=== PATIENT | male | born 1980 | race Caucasian/White ===

== ENCOUNTER 2018-01-24 21:42 | Emergency (ER) | payer OTHER ==
[~2018-01-24] VITALS: Ht 182.9 cm; Wt 84.0 kg
[2018-01-24 21:49] VITALS: Ht 182.9 cm; Wt 84.0 kg
[2018-01-24] MEDS ORDERED: SODIUM CHLORIDE 0.9% 1000ML 1,000 ML IV STA (22:08)
[2018-01-24] MEDS ORDERED: ONDANSETRON INJ 2 MG/ML 2 ML VIAL IV STA ×2 (22:08→23:27)
[2018-01-24] MEDS ORDERED: WLLSR150 PO (22:31)
[2018-01-24 22:41] LABS: BASO % 0.1 %; BASO ABS # 0.02 K/uL (0-0.2); HEMATOCRIT 44.2 % (42-52); IG# 0.06 K/uL (0.00-0.02); LYMPH % 14.3 %; LYMPH ABS # 2.06 K/uL (1.2-3.4); MEAN CELL VOLUME 88.9 fL (80-100); MEAN CORPUSCULAR HEMOGLOBIN 32.2 pg (25-34); MEAN CORPUSCULAR HGB CONC 36.2 g/dl (32-36); MEAN PLATELET VOLUME 9.7 fL (7.4-10.4); MONO % 7.3 %; MONO ABS # 1.05 K/uL (0.11-0.59); NEUT % 77.9 %; NEUT ABS # 11.26 K/uL (1.4-6.5); PLATELET COUNT 323 K/uL (130-400); RED CELL DISTRIBUTION WIDTH SD 41.9 fL (36.4-46.3); WHITE BLOOD COUNT 14.45 K/uL (4.8-10.8)
[2018-01-24 23:01] LABS: ALBUMIN 4.3 gm/dl (3.4-5.0); CALCIUM 9.2 mg/dl (8.5-10.1); CREATININE 1.21 mg/dl (0.60-1.40); POTASSIUM 3.8 mmol/L (3.5-5.1); TOTAL PROTEIN 8.1 gm/dl (6.4-8.2)
[2018-01-24 23:16] VITALS: TEMP 37
[2018-01-25] MEDS ORDERED: ONDA4TAB10 SL (00:30)
[2018-01-25] MEDS ORDERED: ONDANSETRON HOME PACK 4MG OD TAB PO ONE (00:30)
--- NOTE | 2018-01-25 00:30 | EMERGENCY ROOM VISIT NOTE ---
History First contact with patient: 21:56 Chief Complaint: VOMITING Stated Complaint: VOMITING Nursing Triage Summary: Pt states persistent vomiting since wednesday, states unable to keep foods or fluids down. Pt states abdominal pain mid abdomen, states LBM wednesday night which was normal. Pt denies pain in abdomen on palpation. History of Present Illness The patient is a 37 year old male who presents to the Emergency Room with complaints of vomiting for the past 24 hours. Patient states he has had approximately 10 episodes of vomiting and has been unable to keep anything down. He has some discomfort in his abdomen rated a 3/10, but denies any true pain. He denies any diarrhea or changes in bowel movements. The patient does report that over the past several weeks, he has had approximately one episode of vomiting per week after eating. He does not relate this to any specific foods. He has had no abdominal pain or changes in his bowel movements. He denies any fevers. Patient reports a history of depression but is otherwise healthy. Review of Systems A complete 10 point review of systems was reviewed with the patient with pertinent positives and negatives as per history of present illness. All else were negative. Past Medical/Surgical History Medical Problems: (1) Depression Social History Smoking Status: Never Smoker Alcohol Use: occasionally Drug Use: none Housing Status: lives alone Current/Historical Medications Scheduled Bupropion HCl (Bupropion HCl Sr), 150 MG PO BID Ondasetron Odt (Zofran Odt), 4 MG SL Q6H Physical Exam Vital Signs Date Time Temp Pulse Resp B/P (MAP) Pulse Ox O2 Delivery O2 Flow Rate FiO2 01/25/18 00:38 83 18 140/83 97 Room Air 01/24/18 23:16 37.0 83 16 143/84 98 Room Air 01/24/18 21:49 37.5 93 16 165/93 97 Room Air Physical Exam VITALS: Vitals are noted on the nurse's note and reviewed by myself. Vital signs stable. GENERAL: This is a 37-year-old male, in no acute distress, nondiaphoretic, well- developed well-nourished. SKIN: The skin was without rashes. EARS: External auditory canals clear, tympanic membranes pearly rodas without erythema or effusion bilaterally. EYES: Pupils equal round and reactive to light and accommodation. MOUTH: Mucous membranes moist. Tonsils are not enlarged. Pharynx without erythema or exudate. NECK: Supple without nuchal rigidity. No lymphadenopathy. HEART: Regular rate and rhythm without murmurs gallops or rubs. LUNGS: Clear to auscultation bilaterally without wheezes, rales or rhonchi. ABDOMEN: Positive bowel sounds x 4. Soft, nontender to palpation. NEURO: Patient was alert and oriented to person place and time. Medical Decision & Procedures Laboratory Results 01/24/18 22:24 Red Blood Count 4.97, Mean Corpuscular Volume 88.9, Mean Corpuscular Hemoglobin 32.2, Mean Corpuscular Hemoglobin Concent 36.2, Mean Platelet Volume 9.7, Neutrophils (%) (Auto) 77.9, Lymphocytes (%) (Auto) 14.3, Monocytes (%) (Auto) 7.3, Eosinophils (%) (Auto) 0.0, Basophils (%) (Auto) 0.1, Neutrophils # (Auto) 11.26, Lymphocytes # (Auto) 2.06, Monocytes # (Auto) 1.05, Eosinophils # (Auto) 0.00, Basophils # (Auto) 0.02 01/24/18 22:24 Test 01/24/18 22:24 White Blood Count 14.45 K/uL (4.8-10.8) Red Blood Count 4.97 M/uL (4.7-6.1) Hemoglobin 16.0 g/dL (14.0-18.0) Hematocrit 44.2 % (42-52) Mean Corpuscular Volume 88.9 fL (80-100) Mean Corpuscular Hemoglobin 32.2 pg (25-34) Mean Corpuscular Hemoglobin Concent 36.2 g/dl (32-36) Platelet Count 323 K/uL (130-400) Mean Platelet Volume 9.7 fL (7.4-10.4) Neutrophils (%) (Auto) 77.9 % Lymphocytes (%) (Auto) 14.3 % Monocytes (%) (Auto) 7.3 % Eosinophils (%) (Auto) 0.0 % Basophils (%) (Auto) 0.1 % Neutrophils # (Auto) 11.26 K/uL (1.4-6.5) Lymphocytes # (Auto) 2.06 K/uL (1.2-3.4) Monocytes # (Auto) 1.05 K/uL (0.11-0.59) Eosinophils # (Auto) 0.00 K/uL (0-0.5) Basophils # (Auto) 0.02 K/uL (0-0.2) RDW Standard Deviation 41.9 fL (36.4-46.3) RDW Coefficient of Variation 13.0 % (11.5-14.5) Immature Granulocyte % (Auto) 0.4 % Immature Granulocyte # (Auto) 0.06 K/uL (0.00-0.02) Urine Color YELLOW Urine Appearance CLEAR (CLEAR) Urine pH 5.5 (4.5-7.5) Urine Specific [place] 1.031 (1.000-1.030) Urine Protein NEG (NEG) Urine Glucose (UA) NEG (NEG) Urine Ketones 1+ (NEG) Urine Occult Blood NEG (NEG) Urine Nitrite NEG (NEG) Urine Bilirubin NEG (NEG) Urine Urobilinogen NEG (NEG) Urine Leukocyte Esterase NEG (NEG) Anion Gap 11.0 mmol/L (3-11) Est Creatinine Clear Calc Drug Dose 92.7 ml/min Estimated GFR () 88.7 Estimated GFR (Non- 76.6 BUN/Creatinine Ratio 15.1 (10-20) Calcium Level 9.2 mg/dl (8.5-10.1) Total Bilirubin 1.5 mg/dl (0.2-1) Direct Bilirubin 0.3 mg/dl (0-0.2) Aspartate Amino Transf (AST/SGOT) 18 U/L (15-37) Alanine Aminotransferase (ALT/SGPT) 25 U/L (12-78) Alkaline Phosphatase 70 U/L (45-117) Total Protein 8.1 gm/dl (6.4-8.2) Albumin 4.3 gm/dl (3.4-5.0) Lipase 62 U/L (73-393) Medications Administered Medications (Trade) Dose Ordered Sig/Jonathon Route Start Time Stop Time Status Last Admin Dose Admin Sodium Chloride 1,000 ml @ 999 mls/hr Q1H1M STAT IV 01/24/18 22:08 01/24/18 23:08 DC 01/24/18 22:29 999 MLS/HR Ondansetron HCl (Zofran Inj) 4 mg NOW STAT IV 01/24/18 22:08 01/24/18 22:10 DC 01/24/18 22:29 4 MG Ondansetron HCl (Zofran Inj) 4 mg NOW STAT IV 01/24/18 23:27 01/24/18 23:28 DC 01/24/18 23:31 4 MG Ondansetron HCl (ZOFRAN ODT 4MG Home Pack) 1 homepack UD ONCE PO 01/25/18 00:30 01/25/18 00:31 DC 01/25/18 00:33 1 HOMEPACK Medical Decision Differential diagnosis includes gastroenteritis, gastritis, pancreatitis, cholecystitis, bowel obstruction, among others. The patient is a 37-year-old male who presents today complaining of vomiting. Patient has had persistent vomiting for the past 10 hours. Over the past few weeks, he has had a few intermittent episodes of vomiting. He has no abdominal tenderness on exam. History is most consistent with a gastroenteritis. Labs revealed mild leukocytosis of 14,000, likely secondary to vomiting. Bilirubin mildly elevated at 1.5. Lipase was not elevated. Urinalysis was not suggestive of infection. Patient was hydrated and treated with Zofran. This improved his symptoms significantly and he was able to tolerate some Gatorade and crackers. Patient was advised to return with worsening vomiting, focal abdominal pain or fevers. He was advised to follow-up with his PCP this week for recheck and to have his bilirubin rechecked. Based on the patient's presentation and work up, I feel the patient is stable for outpatient treatment. The patient was educated to return to the emergency department for any worsening of their current condition or new/concerning symptoms. He will follow up with his PCP. Blood Pressure Screening Patient's blood pressure: Elevated blood pressure Blood pressure disposition: Elevated BP felt to be situational Impression Primary Impression: Vomiting Departure Information Dispostion Home / Self-Care Condition GOOD Prescriptions Ondasetron Odt (ZOFRAN ODT) 4 Mg Tab 4 MG SL Q6H for Nausea, #10 TAB Prov: Arabella Jeter .TRINIDAD 01/25/18 Referrals No Doctor, Assigned (PCP) Patient Instructions [facility] Additional Instructions You have been prescribed Zofran to be used for any nausea or vomiting. Take as prescribed. For pain control, you can use the following ultl-thf-pbgdtvi medicines (if >12 yo): - Regular strength (325mg/tab) Tylenol (acetaminophen) 2 tabs every 4-6 hours as needed. Do not exceed 12 tablets in a 24 hour period. Avoid taking more than 4 grams (4000 mg) of Tylenol per day. This includes any other sources of acetaminophen you may take on a regular basis. - Regular strength (200 mg/tab) Advil (ibuprofen) 1-2 tabs every 4-6 hours as needed. Do not exceed a dose of 3200 mg per day. Follow-up with your primary care provider this week for a recheck. Return to the emergency department with worsening vomiting, abdominal pain, high fever or other new/concerning symptoms. Problem Qualifiers Primary Impression: Vomiting Vomiting type: unspecified Vomiting Intractability: non-intractable Nausea presence: with nausea Qualified Codes: R11.2 - Nausea with vomiting, unspecified
[2018-01-25 00:38] VITALS: BP 140/83; PULSE 83; O2SAT 97
== END 2018-01-25 00:37 | disposition home or self-care (01) ==
LOC: C.EDB 21:45
DX: R11.2 Nausea with vomiting, unspecified (principal); F32.9 Major depressive disorder, single episode, unspecified